=== PATIENT | female | born 1985 | race Caucasian/White ===

== ENCOUNTER 2017-10-23 23:32 | Emergency (ER) | payer OTHER ==
[~2017-10-23] VITALS: Ht 154.9 cm; Wt 101.5 kg
[~2017-10-23 23:32] MED LIST: COLACE100 MG PO; ENULOSE10 GM/151 PO; NOHOMEMEDS; REQUIP1 MG PO; ZOLOFT25 MG PO
[2017-10-24] MEDS ORDERED: TESSALON PERLE100 MG PO (00:29)
[2017-10-24] MEDS ORDERED: XYLOCAINE VISC100 ML PO (00:29)
[2017-10-24 00:40] VITALS: BP 136/90
== END 2017-10-24 00:43 | disposition home or self-care (01) ==
LOC: EME 23:32
DX: J20.9 Acute bronchitis, unspecified (principal)
CPT/HCPCS: 99281; 99284